=== PATIENT | female | born 1965 | race Caucasian/White ===

== ENCOUNTER 2017-07-26 13:57 | Emergency (ER) | payer OTHER ==
[~2017-07-26] VITALS: Ht 165.1 cm; Wt 122.0 kg
[~2017-07-26 13:57] MED LIST: ALBU4; ALBU90OI6 INH; CALCAVITD PO; CEPH500 PO; CHOL10002; CLIN300 PO; Cipro500 MG PO; FLUSAL1005 INH; FLUSAL2505 IH; Flomax0.4 MG PO; GABA300 PO; HYDACE25S PR; HYDACE5 PO; HYDCHL25 PO; HYOS.125 PO; KETO10 PO; LAMO100 PO; LORA10 PO; LOSHYD; Lisinopril2.5 MG PO; METF500 PO; MONT10T PO; NAPR250 PO; NAPR500 PO; Norco 10-325 T1 EACH PO; OXYACE5T PO; OXYB5 PO; OXYC5; PANT20; PRED20 PO; PROM25 PO; Percocet 5-3251 EACH PO; Peridex480 ML PO; Prinivil10 MG PO; SERT100 PO; SERT25; Ultram50 MG PO; VICODIN 5-3001 EACH PO; Zithromax250 MG PO; Zofran Odt8 MG SL
[2017-07-26] MEDS ORDERED: Norco 5-325 Ta1 EACH PO (14:42)
== END 2017-07-26 14:52 | disposition home or self-care (01) ==
LOC: ER 13:57
DX: S22.32XA Fracture of one rib, left side, initial encounter for closed fracture (principal); J45.909 Unspecified asthma, uncomplicated; E11.9 Type 2 diabetes mellitus without complications; F32.9 Major depressive disorder, single episode, unspecified; M81.0 Age-related osteoporosis without current pathological fracture; Z88.0 Allergy status to penicillin; Z88.2 Allergy status to sulfonamides; Z88.1 Allergy status to other antibiotic agents; Z88.8 Allergy status to other drugs, medicaments and biological substances; Z79.899 Other long term (current) drug therapy; Z87.891 Personal history of nicotine dependence; W50.0XXA Accidental hit or strike by another person, initial encounter
CPT/HCPCS: 99282

== ENCOUNTER 2018-04-01 11:06 | Emergency (ER) | payer OTHER ==
[~2018-04-01] VITALS: Ht 167.6 cm; Wt 122.5 kg
[~2018-04-01 11:06] MED LIST changes: +Norco 5-325 Ta1 EACH PO
== END 2018-04-01 13:06 | disposition home or self-care (01) ==
LOC: ER 11:06
DX: J20.9 Acute bronchitis, unspecified (principal); Z88.0 Allergy status to penicillin; Z88.2 Allergy status to sulfonamides; Z88.1 Allergy status to other antibiotic agents; Z88.8 Allergy status to other drugs, medicaments and biological substances; Z79.899 Other long term (current) drug therapy; J45.909 Unspecified asthma, uncomplicated; E11.9 Type 2 diabetes mellitus without complications; F32.9 Major depressive disorder, single episode, unspecified; Z87.891 Personal history of nicotine dependence
CPT/HCPCS: 71046; 94640; 99283-25

== ENCOUNTER 2018-04-10 11:35 | Emergency (ER) | payer OTHER ==
[~2018-04-10] VITALS: Ht 167.6 cm; Wt 122.5 kg
[2018-04-10] MEDS ORDERED: COMBIVENT RESPIM4 GM INH (12:46)
[2018-04-10] MEDS ORDERED: BUDE6HFA INH (12:46)
[2018-04-10] MEDS ORDERED: BENZ100A PO (12:46)
== END 2018-04-10 13:05 | disposition home or self-care (01) ==
LOC: ER 11:35
DX: J45.909 Unspecified asthma, uncomplicated (principal); E11.9 Type 2 diabetes mellitus without complications; F32.9 Major depressive disorder, single episode, unspecified; Z79.899 Other long term (current) drug therapy; Z88.0 Allergy status to penicillin; Z88.2 Allergy status to sulfonamides; Z87.891 Personal history of nicotine dependence
CPT/HCPCS: 71046; 94640; 99283-25

== ENCOUNTER 2018-09-23 11:48 | Emergency (ER) | payer OTHER ==
[~2018-09-23] VITALS: Ht 167.6 cm; Wt 124.7 kg
[~2018-09-23 11:48] MED LIST changes: +BENZ100A PO; +BUDE6HFA INH; +COMBIVENT RESPIM4 GM INH
[2018-09-23] MEDS ORDERED: Norco 5-325 Ta1 EACH PO (13:05)
== END 2018-09-23 13:11 | disposition home or self-care (01) ==
LOC: ER 11:48
DX: S22.32XA Fracture of one rib, left side, initial encounter for closed fracture (principal); X50.9XXA Other and unspecified overexertion or strenuous movements or postures, initial encounter; Z88.0 Allergy status to penicillin; Z88.2 Allergy status to sulfonamides; Z88.8 Allergy status to other drugs, medicaments and biological substances; Z88.1 Allergy status to other antibiotic agents; Z79.899 Other long term (current) drug therapy; J45.909 Unspecified asthma, uncomplicated; E11.9 Type 2 diabetes mellitus without complications; F32.9 Major depressive disorder, single episode, unspecified; Z87.891 Personal history of nicotine dependence
CPT/HCPCS: 71101; 99283-25

== ENCOUNTER 2018-10-14 11:10 | Emergency (ER) | payer OTHER ==
[~2018-10-14] VITALS: Ht 167.6 cm; Wt 122.5 kg
[2018-10-14] MEDS ORDERED: Norco 5-325 Ta1 EACH PO (12:57)
== END 2018-10-14 13:07 | disposition home or self-care (01) ==
LOC: ER 11:10
DX: R07.81 Pleurodynia (principal); Z88.0 Allergy status to penicillin; Z88.2 Allergy status to sulfonamides; Z88.1 Allergy status to other antibiotic agents; Z79.899 Other long term (current) drug therapy; J45.909 Unspecified asthma, uncomplicated; E11.9 Type 2 diabetes mellitus without complications; F32.9 Major depressive disorder, single episode, unspecified; Z87.891 Personal history of nicotine dependence
CPT/HCPCS: 99283

== ENCOUNTER → 2019-03-25 | Outpatient (CLI) | payer OTHER ==
[2019-03-25 12:25] LABS: BASOPHILS ABSOLUTE AUTO 0.08 K/mm3 (0.00-0.23); BASOPHILS PERCENT AUTO 1 % (0-2); EOSINOPHILS ABSOLUTE AUTO 0.52 K/mm3 (0.00-0.68); EOSINOPHILS PERCENT AUTO 5 % (0-6); Hematocrit 45.3 % (33.0-51.0); Hemoglobin 14.9 g/dL (11.5-16.0); IMMATURE GRAN ABSOLUTE AUTO 0.04 K/mm3 (0.00-0.10); IMMATURE GRAN PERCENT AUTO 0 % (0-1); LYMPHOCYTES ABSOLUTE AUTO 2.29 K/mm3 (0.84-5.20); LYMPHOCYTES PERCENT AUTO 22 % (21-46); MONOCYTES ABSOLUTE AUTO 0.89 K/mm3 (0.16-1.47); MONOCYTES PERCENT AUTO 9 % (4-13); Mean Corpuscular HGB 28.5 pg (26.0-34.0); Mean Corpuscular HGB Conc 32.9 g/dL (31.5-36.5); Mean Corpuscular Volume 87 fL (80-100); Mean Platelet Volume 9.9 fL (9.1-12.4); NEUTROPHILS ABSOLUTE AUTO 6.57 K/mm3 (1.96-9.15); NEUTROPHILS PERCENT AUTO 63 % (41-73); Platelet Count 324 K/mm3 (150-400); RDW Coefficient Variation 13.9 % (11.7-14.2); Red Blood Cell Count 5.22 M/mm3 (3.80-5.20); White Blood Cell Count 10.39 K/mm3 (4.00-11.30)
[2019-03-25 12:46] LABS: Alanine Aminotransfer (ALT/SGP 33 U/L (12-78); Albumin, Blood 3.8 g/dL (3.4-5.0); Albumin/Globulin Ratio 1.1 (0.8-1.8); Alk Phos 69 U/L (40-126); Anion Gap 9 mmol/L (6-16); Aspartate Aminotrans (AST/SGOT 26 U/L (12-37); Bilirubin, Total 0.4 mg/dL (0.1-1.0); Blood Urea Nitrogen 10 mg/dL (8-24); Bun/Creatinine Ratio 11.9 (12.0-20.0); CO2, Blood 28 mmol/L (21-32); Calcium, Blood 8.3 mg/dL (8.5-10.1); Chloride, Blood 107 mmol/L (98-108); Creatinine, Blood 0.84 mg/dL (0.40-1.00); Globulin, Blood 3.5 g/dL (2.2-4.0); Glomerular Filtration Rate >60 (60-); Glucose, Blood 89 mg/dL (70-99); Potassium, Blood 3.8 mmol/L (3.5-5.5); Sodium, Blood 144 mmol/L (136-145); Thyroid Stimulating Hormone 1.284 uIU/mL (0.360-4.800); Total Protein, Blood 7.3 g/dL (6.4-8.2)
== END | disposition home or self-care (01) ==
LOC: LAB EV 12:19 → LAB SHORT 12:19
PROVIDERS: Family Medicine
DX: I10 Essential (primary) hypertension (principal)
CPT/HCPCS: 80053; 84443; 85025

== ENCOUNTER 2021-04-14 10:13 | Emergency (ER) | payer OTHER ==
[~2021-04-14] VITALS: Ht 167.6 cm; Wt 122.5 kg
== END 2021-04-14 13:03 | disposition home or self-care (01) ==
LOC: ER 10:13
DX: R07.81 Pleurodynia (principal); E11.9 Type 2 diabetes mellitus without complications; J45.909 Unspecified asthma, uncomplicated; M81.0 Age-related osteoporosis without current pathological fracture; Z88.0 Allergy status to penicillin; Z88.2 Allergy status to sulfonamides; Z88.8 Allergy status to other drugs, medicaments and biological substances; Z88.1 Allergy status to other antibiotic agents; Z87.891 Personal history of nicotine dependence
CPT/HCPCS: 71100; 96372; 99283-25; J1885

== ENCOUNTER 2023-06-05 05:18 | Emergency (ER) | payer OTHER ==
[~2023-06-05] VITALS: Ht 172.7 cm; Wt 136.1 kg
[~2023-06-05 05:18] MED LIST changes: +Cyclobenzaprine5 MG
[2023-06-05] MEDS ORDERED: Acetaminophen 325 MG TABLET PO ONE (09:40)
[2023-06-05] MEDS ORDERED: Ketorolac Tromethamine 30mg Vial IM ONE (09:40)
[2023-06-05] MEDS ORDERED: Lidocaine 4% 1 Patch TOP ONE (09:40)
[2023-06-05 10:09] VITALS: BP 134/88
[2023-06-05] MEDS ORDERED: OxyCODONE HCL 5 MG TAB PO ONE (10:25)
[2023-06-05] MEDS ORDERED: OXAYDO5 M1 PO (11:20)
== END 2023-06-05 11:41 | disposition home or self-care (01) ==
LOC: ER 05:18
DX: M54.16 Radiculopathy, lumbar region (principal); Z98.890 Other specified postprocedural states; G89.29 Other chronic pain; M81.0 Age-related osteoporosis without current pathological fracture; E11.9 Type 2 diabetes mellitus without complications; Z87.891 Personal history of nicotine dependence; J45.909 Unspecified asthma, uncomplicated; Z79.899 Other long term (current) drug therapy; Z88.0 Allergy status to penicillin; Z88.1 Allergy status to other antibiotic agents; Z88.2 Allergy status to sulfonamides; Z88.8 Allergy status to other drugs, medicaments and biological substances
CPT/HCPCS: 72100; 73502; 96372; 99283-25; A9270; J1885

== ENCOUNTER 2024-04-20 20:27 | Emergency (ER) | payer OTHER ==
[~2024-04-20] VITALS: Ht 167.6 cm; Wt 117.9 kg
[~2024-04-20 20:27] MED LIST changes: +Ativan1 MG PO; -Cyclobenzaprine5 MG; +Cyclobenzaprine5 MG PO; +FLUT1DIS5 INH; +OXAYDO5 M1 PO
[2024-04-20] MEDS ORDERED: Lidocaine 4% 1 Patch TOP ONE (22:50)
[2024-04-20] MEDS ORDERED: RX Prepack 6 Tabs Oxycodone 5mg UD ONE (22:50)
[2024-04-20] MEDS ORDERED: OxyCODONE HCL 5 MG TAB PO ONE (22:50)
[2024-04-20 23:16] VITALS: BP 166/98
== END 2024-04-20 23:17 | disposition home or self-care (01) ==
LOC: ER 20:27
DX: R07.81 Pleurodynia (principal); J45.909 Unspecified asthma, uncomplicated; E11.9 Type 2 diabetes mellitus without complications; Z88.0 Allergy status to penicillin; Z88.2 Allergy status to sulfonamides; Z88.8 Allergy status to other drugs, medicaments and biological substances; Z79.899 Other long term (current) drug therapy; Z87.891 Personal history of nicotine dependence
CPT/HCPCS: 71100; 99283-25; A9270

== ENCOUNTER 2024-06-02 08:22 | Inpatient (IN) | payer OTHER ==
[~2024-06-02] VITALS: Ht 167.6 cm; Wt 108.8 kg
[2024-06-02] VITALS (18 sets, daily range): BP systolic 85–140; BP diastolic 39–96
[~2024-06-02 08:22] MED LIST changes: +CeFAZolin Sodium 2,000 MG in NS 100 ML IV SCH; +Chlorhexidine Mouth Care 15 ML UDC MT SCH; +Lactated Ringer's 1,000 ML IV SCH; +OxyCODONE HCL 10 MG TABCR PO SCH; +Tranexamic Acid 100 ML IV SCH
[2024-06-02] MEDS ORDERED: Ropivacaine 0.5% HCl/Pf 123.125 MG,EPINEPHrine HCL 0.25 MG,Ketorolac Tromethamine 15 MG... INFIL SCH (08:55)
[2024-06-02] MEDS ORDERED: Acetaminophen 500 MG Tab PO SCH ×2 (08:55→16:00)
[2024-06-02] MEDS ORDERED: Adipex-P37.5 M1 (09:10)
[2024-06-02] MEDS ORDERED: ASPI81CH PO (09:12)
[2024-06-02] MEDS ORDERED: CeFAZolin Sodium 2,000 MG VIAL ONE (09:26)
[2024-06-02] MEDS ORDERED: propofoL 20 ML IV ONE ×4 (09:36→11:47)
[2024-06-02] MEDS ORDERED: Midazolam HCl 1MG / ML 2ML Vial ONE ×2 (09:36→10:12)
[2024-06-02] MEDS ORDERED: FentaNYL Citrate 50 MCG/ML 2 ML Injection ONE ×2 (09:36→12:16)
--- NOTE | 2024-06-02 09:47 | NUR ---
PT INTO SDS VIA W/C. NOT ABLE TO BEAR MUCH WT ON RIGHT LEG Patient confirms NPO status and agrees with scheduled surgery. Pre-Op teaching done. Pt verbalizes understanding. History, Chart, Medications and Allergies reviewed before start of procedure. Patient reports completing Chlorhexadine shower X2 prior to admission to hospital.
--- NOTE | 2024-06-02 09:53 | NUR ---
PT'S GLASSES IN HER BELONGINGS BAG. PT STATES SHE IS OK W/ TAKING TYLENOL PO AND IM TORADOL DESPITE THESE BEING LISTED AT ADVERSE REACTIONS.
[2024-06-02] MEDS ORDERED: Bisacodyl 10 MG Supp PR PRN (10:25)
[2024-06-02] MEDS ORDERED: OxyCODONE HCL 5 MG TAB PO PRN ×2 (10:25)
[2024-06-02] MEDS ORDERED: Prochlorperazine Edisylate 10 mg Vial IV PRN (10:25)
[2024-06-02] MEDS ORDERED: Promethazine HCl 25 MG Tab PO PRN (10:25)
[2024-06-02] MEDS ORDERED: HYDROmorphone HCl/Pf 1MG SYR IV PRN (10:30)
[2024-06-02] MEDS ORDERED: Ondansetron HCl 2 MG / ML 2ML Vial IV PRN (10:30)
[2024-06-02] MEDS ORDERED: Magnesium Hydroxide Conc 10 ML UDC PO PRN (10:30)
[2024-06-02] MEDS ORDERED: Metoclopramide HCl 5MG / ML 2ML Vial IV PRN (10:30)
[2024-06-02] MEDS ORDERED: Lactated Ringer's 1,000 ML IV SCH (10:30)
[2024-06-02] MEDS ORDERED: DiphenhydrAMINE HCL 25 MG Cap PO PRN (10:30)
[2024-06-02] MEDS ORDERED: FLU VACC TS2024-25(6MOS UP)/PF 45 MCG/0.5 ML SYRINGE IM SCH (10:35)
--- NOTE | 2024-06-02 10:35 | NUR ---
06/02/24 1035 Suleiman,Vickie SPINAL BLOCK COMPLETED BY DR. LAW UPON ENTRY TO OR.
[2024-06-02] MEDS ORDERED: Mometasone/Formoterol MDI 200/5 mcg 13 GM INH SCH (11:00)
[2024-06-02] MEDS ORDERED: Phenylephrine HCl 100 MCG/ML-NS 10MLSYR (1MG/10ML) ONE (11:29)
[2024-06-02] MEDS ORDERED: Dexamethasone Sod Phos 10 MG/ML 1ML VIAL ONE (11:34)
[2024-06-02] MEDS ORDERED: ePHEDrine Sulfate 50 MG/ML 1ML Injection ONE (11:35)
--- NOTE | 2024-06-02 13:16 | NUR ---
TRANSFER TO UNIT AFTER RECEIVING REPORT FROM LOW PRESSURE KETTLE OPERATOR, PATIENT TRANSFERRED TO UNIT VIA BED AT APPROX 1300. PATIENT ALERT AND ORIENTED X4. LETHARGIC, EASILY AROUSABLE WITH VERBAL STIMULI. S/P R EZEQUIEL WITH SPINAL - REPORTS MINIMAL SENSATION, IS ABLE TO WIGGLE TOES SOME. PPP. CAP REFILL <3 SECONDS. ZAK DRESSING C/D/I. POLAR PACK IN PLACE. REPORTS NAUSEA, NO VOMITING - IV ZOFRAN ADMINISTERED PER EMAR. IVF INFUSING PER EMAR. SNACKS AND WATER WITHIN REACH. CALL LIGHT IN REACH. FRIEND AT BEDSIDE.
--- NOTE | 2024-06-02 17:44 | NUR ---
SHIFT SUMMARY NO ACUTE CHANGES SINCE ARRIVAL TO UNIT. S/P R EZEQUIEL. VSS. SBP 100s-110s. MAP >65. IVF INFUSING PER EMAR. TITRATED TO ROOM AIR, SATs >90%. AWAITING PHYSICAL THERAPY EVAL. UP WITH 1P ASSIST FWW GB TO BSC AND CHAIR. ZAK DRESSING C/D/I. PAIN MANAGED PER EMAR AND WITH POLAR PACK. NAUSEA IMPROVED - TOLERATING PO INTAKE. UNABLE TO VOID THIS EVENING - BLADDER SCAN PERFORMED PRIOR TO TRANSFER SHOWING 204ML. CALL LIGHT IN REACH.
[2024-06-02] MEDS ORDERED: CeFAZolin Sodium 2,000 MG in NS 100 ML IV SCH (18:00)
[2024-06-02] MEDS ORDERED: ELIQUIS2.5 MG PO (18:10)
[2024-06-02] MEDS ORDERED: Gabapentin 300 MG Cap PO SCH (21:00)
[2024-06-02] MEDS ORDERED: Montelukast Sodium 10 MG Tab PO SCH (21:00)
[2024-06-02] MEDS ORDERED: Docusate Sodium 100 MG Cap PO SCH (21:00)
[2024-06-03] VITALS (16 sets, daily range): BP systolic 101–137; BP diastolic 57–87
[2024-06-03] MEDS ORDERED: Cyclobenzaprine HCl 10 MG Tab PO PRN (00:10)
[2024-06-03 06:03] LABS: BASOPHILS ABSOLUTE AUTO 0.04 K/mm3 (0.00-0.23); BASOPHILS PERCENT AUTO 0 % (0-2); EOSINOPHILS ABSOLUTE AUTO 0.04 K/mm3 (0.00-0.68); EOSINOPHILS PERCENT AUTO 0 % (0-6); Hematocrit 33.3 % (33.0-51.0); Hemoglobin 11.1 g/dL (11.5-16.0); IMMATURE GRAN ABSOLUTE AUTO 0.11 K/mm3 (0.00-0.10); IMMATURE GRAN PERCENT AUTO 1 % (0-1); LYMPHOCYTES ABSOLUTE AUTO 2.03 K/mm3 (0.84-5.20); LYMPHOCYTES PERCENT AUTO 9 % (21-46); MONOCYTES ABSOLUTE AUTO 2.04 K/mm3 (0.16-1.47); MONOCYTES PERCENT AUTO 9 % (4-13); Mean Corpuscular HGB Conc 33.3 g/dL (31.5-36.5); Mean Corpuscular Volume 84 fL (80-100); NEUTROPHILS ABSOLUTE AUTO 18.56 K/mm3 (1.96-9.15); NEUTROPHILS PERCENT AUTO 81 % (41-73); Platelet Count 317 K/mm3 (150-400); RDW Coefficient Variation 13.8 % (11.7-14.2); RDW Standard Deviation 42.2 fL (35.1-46.3); Red Blood Cell Count 3.96 M/mm3 (3.80-5.20); White Blood Cell Count 22.82 K/mm3 (4.00-11.30)
[2024-06-03 06:13] LABS: Bun/Creatinine Ratio 39.5 (12.0-20.0); Calcium, Blood 8.5 mg/dL (8.5-10.1); Creatinine, Blood 0.63 mg/dL (0.40-1.00)
--- NOTE | 2024-06-03 07:17 | NUR ---
SHIFT SUMMARY PT POD 0 RIGHT TOTAL HIP. PT HAS BEEN PAINFUL POST OP. PT HAD SOME PAIN AT SHIFT CHANGE, BUT IT WAS MINIMAL. PT REPORTED IT AT 4/10. PT WAS ABLE TO AMBULATE IN THE HALLWAY WITH THE RADIAL DRILL PRESS OPERATOR AND REPORTED THAT SHE FELT GOOD. PT WAS ALSO TO AMBULATE FROM THE BSC BACK TO BED. CLOSER TO MIDNIGHT PT GOT UP WITH RADIAL DRILL PRESS OPERATOR TO USE THE BATHROOM AND PT REPORTS THAT SHE HEARD HER KNEE "POP". SHE VALENTINA THAT HER KNEE POPPED TWICE. SINCE THAT TIME PT HAS SUFFERED INTERMITTENT PAIN IN HER RIGHT KNEE AND INSIDE OF HER THIGH. PAIN ASSESSED FREQUENTLY AND MANAGE PER EMAR TO HELP ENSURE ADEQUATE PAIN RELIEF. PT REPORTS THAT PAIN MEDICATION EFFECTIVE FOR PAIN, HOWEVER PT REPORTS THAT THE PAIN KEEPS COMING BACK. PT ALSO REPORTS MUSCLE SPASMS IN HER LOWER EXT. PT REPORTS HISTORY OF ARTHRITIS IN HER RIGHT KNEE WELL MUSCLES SPASMS. SURGICAL SITE WNL, ARE IS SOFT. CIRCULATION WNL. PULSES ARE PRESENT. PT ABLE TO WIGGLE TOES. ATMOSPHERIC CHEMIST SUMEET VALENTIN ALSO ASSESSED SURGICAL SITE WITH THIS RN AND NOTED SAME FINDINGS. PT HAS ANXIOUS MOST OF THE NIGHT. REPORTING THAT THE PAIN WAKES HER FROM SLEEPING. PT NOW ONLY ABLE TO WALK SHORT DISTANCES FROM THE BED TO THE BSC, TOO MUCH MOVEMENT CAUSES SHARP PAINS IN HER RIGHT KNEE AND INNER THIGH. PT IS VOIDING, TOLERATING PO INTAKE. VITALS STABLE AND POST OP ANTIBIOTICS INFUSED. DAYSHIFT FRANKLYN DOBBS MADE AWARE OF PT REPORTED PAIN OVERNIGHT. DISCUSSED WITH PT DURING BEDSIDE REPORT THAT DAY RN WILL FOLLOW UP WITH PROVIDER. VITALS STABLE. BED IN LOWEST POISITON, CALL LIGHT WITHIN REACH.
[2024-06-03] MEDS ORDERED: Gabapentin 300 MG Cap PO SCH (09:00)
[2024-06-03] MEDS ORDERED: Sertraline HCl 100 MG Tab PO SCH (09:00)
[2024-06-03] MEDS ORDERED: LamoTRIgine 100 MG Tab PO SCH (09:00)
[2024-06-03] MEDS ORDERED: Apixaban 5 MG Tab PO SCH ×2 (09:00→21:00)
--- NOTE | 2024-06-03 14:00 | NUR ---
Pt. is awake in bed when she welcomes my visit. Pt. is pleasant but is unsettled by the delay in the response from her surgeon. Listen with empathy and a calming presence and seek to normalize the Pt. experience. Pt. continued to verbalize her frustration, so this director special education changed the focus and considered matters of marylou and belief. Pt. verbalized she is a member of the [employer] of the [facility]. Pt. displayed evidence of a growing level of trust. A friends came to visit, and the visit pretty much stopped. Pt. verbalized gratitude for the spiritual care visit.
--- NOTE | 2024-06-03 14:00 | NUR ---
DR. CHOE ROUNDED ON PT. DR. CHOE NOTIFIED OF URINARY RETENTION, BLADDER SCAN VOLUME OF 417ML. PER DR. CHOE OK FOR SANDERS CATHETER, HE SUGGESTED CATHETER PLACEMENT IN OR.
[2024-06-03] MEDS ORDERED: CeFAZolin Sodium 2,000 MG in NS 100 ML IV SCH (15:10)
[2024-06-03] MEDS ORDERED: Tranexamic Acid 100 ML IV SCH (15:10)
[2024-06-03] MEDS ORDERED: Chlorhexidine Mouth Care 15 ML UDC MT SCH (15:10)
[2024-06-03] MEDS ORDERED: Lactated Ringer's 1,000 ML IV SCH ×2 (15:10→19:05)
[2024-06-03] MEDS ORDERED: OxyCODONE HCL 10 MG TABCR PO SCH (15:10)
[2024-06-03] MEDS ORDERED: HYDROmorphone HCl/Pf 1MG SYR ONE ×3 (15:13→19:14)
[2024-06-03] MEDS ORDERED: CeFAZolin Sodium 2,000 MG VIAL ONE (15:18)
[2024-06-03] MEDS ORDERED: Lidocaine HCl 2% 20 ML MDV ONE (15:20)
[2024-06-03] MEDS ORDERED: Rocuronium Bromide 10 MG/ML 5ML Injection IV ONE ×3 (15:21→17:37)
[2024-06-03] MEDS ORDERED: propofoL 20 ML IV ONE ×3 (15:21→16:25)
[2024-06-03] MEDS ORDERED: FentaNYL Citrate 50 MCG/ML 2 ML Injection ONE ×3 (15:22→19:14)
[2024-06-03] MEDS ORDERED: Midazolam HCl 1MG / ML 2ML Vial ONE (15:25)
--- NOTE | 2024-06-03 15:30 | NUR ---
PT RECENTLY TO [facility] BY BED. Patient confirms NPO status and agrees with scheduled surgery. History, Chart, Medications and Allergies reviewed before start of procedure.Pre-Op teaching done. Pt verbalizes understanding. Lungs clear T/O to Auscultation. DISCUSSED MEDICATIONS TO BE GIVEN WITH ANESTHESIA.
--- NOTE | 2024-06-03 15:36 | NUR ---
SURGICAL NURSE Wolf. UPDATED ON MEDICATIONS GIVEN AND THAT TYLENOL WAS NOT GIVEN AT THIS TIME.
[2024-06-03] MEDS ORDERED: Dexamethasone Sod Phos 10 MG/ML 1ML VIAL ONE (17:31)
[2024-06-03] MEDS ORDERED: Ondansetron HCl 2 MG / ML 2ML Vial ONE (17:39)
[2024-06-03] MEDS ORDERED: FentaNYL Citrate 50 MCG/ML 2 ML Injection IV PRN (17:50)
[2024-06-03] MEDS ORDERED: Albuterol 2.5 MG/3 ML VIAL INH PRN (17:50)
[2024-06-03] MEDS ORDERED: HYDROmorphone HCl/Pf 1MG SYR IV PRN ×2 (17:50→19:10)
[2024-06-03] MEDS ORDERED: Ondansetron HCl 2 MG / ML 2ML Vial IV PRN ×2 (17:50→19:00)
--- NOTE | 2024-06-03 17:52 | NUR ---
SHIFT SUMMARY PT IS POD#1 FROM R EZEQUIEL. PT IN OR NOW FOR PERIPROSTHETIC FX. PAIN MANAGED WITH PO AND IV PAIN MEDICATION. PT CALL APPROPRIATELY.
[2024-06-03] MEDS ORDERED: Sugammadex Sodium 200 MG/2ML SDV (100 MG/ML) ONE (18:16)
[2024-06-03] MEDS ORDERED: Bisacodyl 10 MG Supp PR PRN (19:00)
[2024-06-03] MEDS ORDERED: Promethazine HCl 25 MG Tab PO PRN (19:05)
[2024-06-03] MEDS ORDERED: Magnesium Hydroxide Conc 10 ML UDC PO PRN (19:05)
[2024-06-03] MEDS ORDERED: OxyCODONE HCL 5 MG TAB PO PRN ×2 (19:05→19:10)
[2024-06-03] MEDS ORDERED: Metoclopramide HCl 5MG / ML 2ML Vial IV PRN (19:05)
[2024-06-03] MEDS ORDERED: Prochlorperazine Edisylate 10 mg Vial IV PRN (19:10)
[2024-06-03] MEDS ORDERED: DiphenhydrAMINE HCL 25 MG Cap PO PRN (19:10)
--- NOTE | 2024-06-03 20:23 | NUR ---
ARRIVAL FROM PACU TO UNIT PT ARRIVED FROM PACU AT 2007 TODAY VIA HOSPITAL BED TO SURGICAL UNIT. PT A/OX4, VERY DROWSY BUT ABLE TO MAKE NEEDS KNOWN. VSS. ON 3L NC AT 95%, CONT BIOX IN PLACE. ZAK TO LEFT HIP CDI, NO DRAINAGE NOTED. POLAR PACK WITH FRESH ICE APPLIED TO RIGHT HIP AREA. IV TO RIGHT HAND PATENT SL. SANDERS TO GRAVITY DRAIN, STAT LOCK TO LEFT THIGH. SCD'S AND COMPRESSION STOCKING BLE. BRISK CAP REFILL. ABLE TO WIGGLE TOES AND FINGERS. CHON SIPS OF WATER, DENIES N/V. PT RESTING WITH CALL LIGHT IN REACH, RESPIRATIONS EVEN AND UNLABORED WITH EYES CLOSED. POST VITALS ORDERED
[2024-06-03] MEDS ORDERED: Docusate Sodium 100 MG Cap PO SCH (21:00)
[2024-06-04] MEDS ORDERED: CeFAZolin Sodium 2,000 MG in NS 100 ML IV SCH
[2024-06-04 02:43] VITALS: BP 107/78
--- NOTE | 2024-06-04 04:03 | NUR ---
SHIFT SUMMARY POD 1 RIGHT TOTAL HIP REVISION. PT A/OX4 WITH VSS. SPO2 ABOVE 95%, CONT BIOX IN PLACE PER PROTOCOL. ZAK DRESSING INTACT AND COMPRESSED WITH SCANT AMOUNT OF SS DRAINAGE. DRESSING REINFORCED X 1 DUE TO AIR LEAK. PAIN MANAGED PER EMAR, CRYO, REPOSITIONING AND STANDING AT BEDSIDE. PT DENIES N/V, TOLERATING REG PO DIET. ABX AND IVF INFUSED PER ORDERS. ABLE TO DANGLE AND STAND AT BEDSIDE WITH 2 PERSON ERIBERTO, GB, FWW- PER PT REQUEST. WT BEARING OF TOE TOUCH ONLY MAINTAINED. PT CURRENTLY RESTING IN BED WITH EYES CLOSED AND RESP EVEN/UNLABORED, ROLL BETWEEN LEGS FOR SAFETY, AND CALL LIGHT IN REACH. PLAN TO WORK WITH THERAPY TODAY. WILL GIVE REPORT TO ONCOMING FRANKLYN
[2024-06-04 05:32] LABS: BASOPHILS ABSOLUTE AUTO 0.03 K/mm3 (0.00-0.23); BASOPHILS PERCENT AUTO 0 % (0-2); EOSINOPHILS PERCENT AUTO 0 % (0-6); Hematocrit 25.8 % (33.0-51.0); Hemoglobin 8.6 g/dL (11.5-16.0); IMMATURE GRAN ABSOLUTE AUTO 0.09 K/mm3 (0.00-0.10); IMMATURE GRAN PERCENT AUTO 1 % (0-1); LYMPHOCYTES ABSOLUTE AUTO 1.41 K/mm3 (0.84-5.20); LYMPHOCYTES PERCENT AUTO 8 % (21-46); MONOCYTES ABSOLUTE AUTO 1.99 K/mm3 (0.16-1.47); MONOCYTES PERCENT AUTO 11 % (4-13); Mean Corpuscular HGB 28.2 pg (26.0-34.0); Mean Corpuscular HGB Conc 33.3 g/dL (31.5-36.5); Mean Corpuscular Volume 85 fL (80-100); Mean Platelet Volume 10.2 fL (9.1-12.4); NEUTROPHILS ABSOLUTE AUTO 14.22 K/mm3 (1.96-9.15); NEUTROPHILS PERCENT AUTO 80 % (41-73); Platelet Count 311 K/mm3 (150-400); RDW Coefficient Variation 14.1 % (11.7-14.2); RDW Standard Deviation 43.2 fL (35.1-46.3); Red Blood Cell Count 3.05 M/mm3 (3.80-5.20); White Blood Cell Count 17.74 K/mm3 (4.00-11.30)
[2024-06-04 06:02] LABS: Calcium, Blood 8.3 mg/dL (8.5-10.1); Creatinine, Blood 0.72 mg/dL (0.40-1.00); Potassium, Blood 4.3 mmol/L (3.5-5.5)
[2024-06-04 07:54] VITALS: BP 135/76
[2024-06-04 08:37] VITALS: BP 135/82
--- NOTE | 2024-06-04 09:00 | NUR ---
DR. PALMER ROUNDED DISCUSSED INCREASED ANXIETY, ESPECIALLY OVERNIGHT. DR. PALMER SUGGESTED HAVING A THERAPY DOG VISIT TO HELP WITH PATIENT'S ANXIETY.
[2024-06-04 14:37] VITALS: BP 126/74
[2024-06-04 19:13] VITALS: BP 123/66
--- NOTE | 2024-06-04 19:32 | NUR ---
SHIFT SUMMARY PAIN HAS BEEN MANAGED WITH PO PAIN MEDICATION THIS SHIFT. PT IS A 1 ASSIST FOR TRANSFERS. PT IS PAINFUL WITH TRANSFERS, SHE MAINTAINS HER WEIGHT BEARING STATUS. ZAK DRESSING INTACT TO R THIGH, SWELLING PRESENT. BEDSIDE REPORT GIVEN TO ERICH ESTES.
[2024-06-05] VITALS (11 sets, daily range): BP systolic 102–142; BP diastolic 56–78
--- NOTE | 2024-06-05 05:54 | NUR ---
SHIFT SUMMARY POD 2 S/P RIGHT HIP ORIF REVISION. ZAK TO RIGHT HIP INCISION IN PLACE AND COMPRESSED, INCREASED SS DRAINAGED NOTED AT SUPERIOR PORTION OF DRESSING APPROX 4CM IN DIAMETER. PAIN MANAGED PER EMAR. IS VOIDING AND CHON PO INTAKE. 2 PERSON MAX ASSIST WITH GB AND SBA TO BSC, FREQUENT REMINDERS TO FOLLOW HIP PRECAUTIONS REQUIRED DURING TRANSFER. TOE TOUCH STATUS RLE. SCDS AND CRYO IN PLACE T/O SHIFT CHON. IV PATENT AND SL. PLAN TO WORK WITH THERAPY TODAY AND POSSIBLE SNF DISCHARGE. WILL GIVE REPORT TO ONCOMING FRANKLYN
[2024-06-05] MEDS ORDERED: Ketorolac Tromethamine 15mg Vial IV SCH (11:35)
[2024-06-05 12:12] LABS: BASOPHILS ABSOLUTE AUTO 0.06 K/mm3 (0.00-0.23); BASOPHILS PERCENT AUTO 0 % (0-2); EOSINOPHILS ABSOLUTE AUTO 0.08 K/mm3 (0.00-0.68); EOSINOPHILS PERCENT AUTO 1 % (0-6); Hematocrit 20.2 % (33.0-51.0); Hemoglobin 6.6 g/dL (11.5-16.0); IMMATURE GRAN PERCENT AUTO 1 % (0-1); LYMPHOCYTES ABSOLUTE AUTO 1.98 K/mm3 (0.84-5.20); LYMPHOCYTES PERCENT AUTO 13 % (21-46); MONOCYTES ABSOLUTE AUTO 1.58 K/mm3 (0.16-1.47); MONOCYTES PERCENT AUTO 11 % (4-13); Mean Corpuscular HGB 27.8 pg (26.0-34.0); Mean Corpuscular HGB Conc 32.7 g/dL (31.5-36.5); Mean Corpuscular Volume 85 fL (80-100); Mean Platelet Volume 10.1 fL (9.1-12.4); NEUTROPHILS ABSOLUTE AUTO 11.16 K/mm3 (1.96-9.15); NEUTROPHILS PERCENT AUTO 75 % (41-73); Platelet Count 279 K/mm3 (150-400); RDW Coefficient Variation 14.6 % (11.7-14.2); RDW Standard Deviation 44.8 fL (35.1-46.3); Red Blood Cell Count 2.37 M/mm3 (3.80-5.20); White Blood Cell Count 14.96 K/mm3 (4.00-11.30)
[2024-06-05 12:53] LABS: Bun/Creatinine Ratio 23.6 (12.0-20.0); Calcium, Blood 8.1 mg/dL (8.5-10.1); Creatinine, Blood 0.55 mg/dL (0.40-1.00)
[2024-06-05] MEDS ORDERED: NS 250 ML IV PRN (15:35)
[2024-06-05] MEDS ORDERED: Calcium/Vit D 600 mg-400 Unit Tab PO SCH (17:00)
--- NOTE | 2024-06-05 17:54 | NUR ---
1ST UNIT OF BLOOD TRANSFUSING AND AT ABOUT 1740, PT REPORTED SWELLING AT L WRIST IV SITE. THIS RN ASSESSED AND IV INFILTRATED. BLOOD STOPPED AND IV REMOVED. SITE WRAPPED WITH GAUZE AND COBAN, COMPRESSED AND ELEVATED ON A PILLOW. SLASHER HANDHECTOR STARTING NEW IV AT THIS TIME.
--- NOTE | 2024-06-05 19:11 | NUR ---
SUMMARY: NO ACUTE CHANGE TODAY. VSS, A/O. NO CHANGE TO SURGICAL SITE. PT REPORTS NO MUSCLE SPASMS TONIGHT AND PAIN WELL MANAGED. 1ST UNIT STILL INFUSING AT THIS TIME. PT USES CALL LIGHT AND MAKES NEEDS KNOWN. REPORT PASSED TO ERICH RN, ALIYAH
--- NOTE | 2024-06-05 20:42 | NUR ---
BLOOD UPDATE SECOND UNIT OF PRBC STARTED AT 2020.
--- NOTE | 2024-06-05 23:38 | NUR ---
BLOOD INFUSION COMPLETE 2ND UNIT OF BLOOD COMPLETE. PT A/OX4 WITH VSS. DENIES SOB. LUNG SOUNDS CL. PT RESTING IN BED WITH CPAP IN PLACE AND CALL LIGHT IN REACH.
[2024-06-06 05:03] VITALS: BP 115/66
[2024-06-06 06:06] LABS: BASOPHILS ABSOLUTE AUTO 0.06 K/mm3 (0.00-0.23); BASOPHILS PERCENT AUTO 0 % (0-2); EOSINOPHILS ABSOLUTE AUTO 0.42 K/mm3 (0.00-0.68); EOSINOPHILS PERCENT AUTO 3 % (0-6); Hematocrit 24.8 % (33.0-51.0); Hemoglobin 8.2 g/dL (11.5-16.0); IMMATURE GRAN ABSOLUTE AUTO 0.11 K/mm3 (0.00-0.10); IMMATURE GRAN PERCENT AUTO 1 % (0-1); LYMPHOCYTES PERCENT AUTO 18 % (21-46); MONOCYTES ABSOLUTE AUTO 1.08 K/mm3 (0.16-1.47); MONOCYTES PERCENT AUTO 8 % (4-13); Mean Corpuscular HGB 28.6 pg (26.0-34.0); Mean Corpuscular HGB Conc 33.1 g/dL (31.5-36.5); Mean Corpuscular Volume 86 fL (80-100); Mean Platelet Volume 10.1 fL (9.1-12.4); NEUTROPHILS ABSOLUTE AUTO 9.76 K/mm3 (1.96-9.15); NEUTROPHILS PERCENT AUTO 70 % (41-73); NRBC ABSOLUTE 0.02 K/mm3 (0.00-0.02); NRBC Auto 0.1 /100 WBC (0.0-0.2); Platelet Count 270 K/mm3 (150-400); RDW Coefficient Variation 14.4 % (11.7-14.2); RDW Standard Deviation 44.5 fL (35.1-46.3); Red Blood Cell Count 2.87 M/mm3 (3.80-5.20); White Blood Cell Count 13.93 K/mm3 (4.00-11.30)
--- NOTE | 2024-06-06 06:44 | NUR ---
SHIFT SUMMARY POD 3 ORIF REVISION OF RIGHT HIP. ZAK DRESSING TO INCISION IN PLACE AND COMPRESSED. SMALL AMOUNT OF INCREASED BLEEDING TO SUPERIOR AREA OF DRESSING NOTED. PT ABLE TO STAND, PIVOT TRANSFER X 1 ASSIST- IMPROVEMENT FROM START OF SHIFT. RECEIVED 2 UNIT PRB. PT REPORTS TO FEELING BETTER THIS MORNING AND SLEPT WELL DURING THE NIGHT. WEARING CPAP WHILE SLEEPING RELATED MO. PAIN MANAGED PER EMAR. CHON PO INTAKE, DENIES N/V. REPORTS PASSING FLATUS. IS VOIDING. IV PATENT AND SL. PLAN FOR POSSIBLE D/C TO SNF. AWAITING LABS. WILL GIVE REPORT TO ONCOMING RN.
[2024-06-06 06:48] LABS: Albumin, Blood 2.5 g/dL (3.4-5.0); Albumin/Globulin Ratio 0.7 (0.8-1.8); Bilirubin, Total 0.6 mg/dL (0.1-1.0); Bun/Creatinine Ratio 25.4 (12.0-20.0); Calcium, Blood 8.4 mg/dL (8.5-10.1); Creatinine, Blood 0.71 mg/dL (0.40-1.00); Globulin, Blood 3.5 g/dL (2.2-4.0); Potassium, Blood 3.5 mmol/L (3.5-5.5)
[2024-06-06 07:35] VITALS: BP 130/68
[2024-06-06 09:35] LABS: Percent Saturation 12.6 % (15.0-50.0)
--- NOTE | 2024-06-06 10:33 | NUR ---
MORNING NOTE THIS RN ASSUMED CARE AT APPROX 0715. PATIENT ALERT AND ORIENTED X4. COMMUNICATES NEEDS EFFECTIVELY. VSS. SBP 130s. MAP >65. DENIES CHEST PAIN, PRESSURE. ON ROOM AIR, SATs >90%. DENIES SOB. HX OF MO WITH CPAP USE - DEVICE AT BEDSIDE. POD 3 R ORIF AND EZEQUIEL - MODERATE SANGUINOUS DRAINAGE TO ZAK DRESSING. DRESSING CHANGED THIS MORNING - C/D/I. AMBULATING WITH 1P ASSIST FWW GB. TTWB RLE. BEDBATH PERFORMED. UP IN RECLINER CHAIR. MANAGING PAIN PER EMAR AND WITH POLAR PACK. CALL LIGHT IN REACH.
--- NOTE | 2024-06-06 13:35 | NUR ---
DISCHARGE NOTE NO ACUTE CHANGES SINCE MORNING NOTE. DC TO [facility] ORDERED BY . CASE MANAGEMENT ARRANGED DC AND FOR TRANSPORT TO FACILITY. POD 3 R ORIF AND HIP REVISION - ZAK DRESSING REMAINS C/D/I. MANAGING PAIN WITH PRESCRIBED THERAPY AND POLAR PACK. AMBULATING WITH 1P ASSIST FWW GB - UP IN CHAIR. IV REMOVED. REPORT GIVEN TO OSCAR ESTES AT [facility] FOR ASSUMPTION OF CARE FOLLOWING TRANSFER. PERSONAL BELONGINGS WITH PATIENT.
== END 2024-06-06 13:40 | DRG 466 ==
LOC: SURS 08:22 → ORSCMMR 08:22 → SURS 13:00 → ORSCMMR 06-03 09:03 → SURS 06-06 13:40
PROVIDERS: Internal Medicine; Orthopaedic Surgery Sports Medicine; ADMIT Orthopaedic Surgery
PROC: 0SR90JZ Replacement of Right Hip Joint with Synthetic Substitute, Open Approach (ICD-10-PCS; 2024-06-02)
PROC: 0QS604Z Reposition Right Upper Femur with Internal Fixation Device, Open Approach (ICD-10-PCS; 2024-06-02)
PROC: 0HBHXZZ Excision of Right Upper Leg Skin, External Approach (ICD-10-PCS; 2024-06-02)
PROC: 30233N1 Transfusion of Nonautologous Red Blood Cells into Peripheral Vein, Percutaneous Approach (ICD-10-PCS; 2024-06-03)
PROC: 0SW90JZ Revision of Synthetic Substitute in Right Hip Joint, Open Approach (ICD-10-PCS; principal; 2024-06-03 15:30)
DX: M16.11 Unilateral primary osteoarthritis, right hip (principal); S72.111A Displaced fracture of greater trochanter of right femur, initial encounter for closed fracture; J45.909 Unspecified asthma, uncomplicated; E11.9 Type 2 diabetes mellitus without complications; F32.A Depression, unspecified; M54.50 Low back pain, unspecified; G89.29 Other chronic pain; D50.9 Iron deficiency anemia, unspecified; E55.9 Vitamin D deficiency, unspecified; M81.0 Age-related osteoporosis without current pathological fracture; Z88.2 Allergy status to sulfonamides; Z96.641 Presence of right artificial hip joint; Z88.8 Allergy status to other drugs, medicaments and biological substances; Z88.0 Allergy status to penicillin; Z79.891 Long term (current) use of opiate analgesic; Z88.1 Allergy status to other antibiotic agents; Z79.01 Long term (current) use of anticoagulants; Z79.899 Other long term (current) drug therapy; Z98.890 Other specified postprocedural states; X58.XXXA Exposure to other specified factors, initial encounter
CPT/HCPCS: 36415; 36430; 72170; 73502; 80048; 80053; 82306; 82728; 83540; 83550; 85025; 86850; 86900; 86901; 86923; 94640; 94660; 94664; 94760; 94762; 97110; 97162; 97165; 97530; A6010; A9270; C1713; C1776; J0171; J0690; J0735; J1100; J1171; J1885; J2250; J2371; J2405; J2704; J2795; J3010; J7050; J7120; P9016

== ENCOUNTER 2024-07-05 04:46 | Emergency (ER) | payer OTHER ==
[~2024-07-05] VITALS: Ht 167.6 cm; Wt 117.9 kg
[~2024-07-05 04:46] MED LIST changes: +ASPI81CH PO; +Adipex-P37.5 M1; -CeFAZolin Sodium 2,000 MG in NS 100 ML IV SCH; -Chlorhexidine Mouth Care 15 ML UDC MT SCH; +ELIQUIS2.5 MG PO; -Lactated Ringer's 1,000 ML IV SCH; -OxyCODONE HCL 10 MG TABCR PO SCH; -Tranexamic Acid 100 ML IV SCH
[2024-07-05] MEDS ORDERED: Ketorolac Tromethamine 15mg Vial IM ONE (07:35)
[2024-07-05 09:15] VITALS: BP 118/59
== END 2024-07-05 09:28 | disposition home or self-care (01) ==
LOC: ER 04:46
DX: M25.551 Pain in right hip (principal); E11.9 Type 2 diabetes mellitus without complications; J45.909 Unspecified asthma, uncomplicated; M81.0 Age-related osteoporosis without current pathological fracture; Z96.641 Presence of right artificial hip joint; Z87.891 Personal history of nicotine dependence; Z88.0 Allergy status to penicillin; Z88.1 Allergy status to other antibiotic agents; Z88.2 Allergy status to sulfonamides; Z88.6 Allergy status to analgesic agent; Z88.8 Allergy status to other drugs, medicaments and biological substances; Z79.82 Long term (current) use of aspirin; Z79.01 Long term (current) use of anticoagulants; Z79.899 Other long term (current) drug therapy; W05.0XXA Fall from non-moving wheelchair, initial encounter
CPT/HCPCS: 73502; 96372; 99283-25; J1885

== ENCOUNTER 2024-09-14 01:38 | Observation (INO) | payer OTHER ==
[~2024-09-14] VITALS: Ht 170.2 cm; Wt 103.0 kg
[2024-09-14] VITALS (14 sets, daily range): BP systolic 123–155; BP diastolic 67–94
[~2024-09-14 01:38] MED LIST changes: -Adipex-P37.5 M1; +Adipex-P37.5 M1 PO
[2024-09-14] MEDS ORDERED: HYDROmorphone HCl/Pf 1MG SYR IV ONE ×2 (02:25→12:20)
[2024-09-14] MEDS ORDERED: Morphine Sulfate 4 MG/1 ML Injection IV ONE (03:20)
[2024-09-14] MEDS ORDERED: Naloxone HCl 0.4MG / ML 1ML Vial IV PRN (05:10)
[2024-09-14] MEDS ORDERED: Ondansetron HCl 2 MG / ML 2ML Vial IV PRN (05:10)
[2024-09-14] MEDS ORDERED: HYDROmorphone HCl/Pf 1MG SYR IV PRN ×3 (05:10→06:45)
[2024-09-14 05:30] LABS: BASOPHILS ABSOLUTE AUTO 0.06 K/mm3 (0.00-0.23); BASOPHILS PERCENT AUTO 1 % (0-2); EOSINOPHILS ABSOLUTE AUTO 0.43 K/mm3 (0.00-0.68); EOSINOPHILS PERCENT AUTO 4 % (0-6); Hematocrit 36.1 % (33.0-51.0); IMMATURE GRAN ABSOLUTE AUTO 0.02 K/mm3 (0.00-0.10); IMMATURE GRAN PERCENT AUTO 0 % (0-1); LYMPHOCYTES ABSOLUTE AUTO 1.67 K/mm3 (0.84-5.20); LYMPHOCYTES PERCENT AUTO 16 % (21-46); MONOCYTES ABSOLUTE AUTO 0.76 K/mm3 (0.16-1.47); MONOCYTES PERCENT AUTO 7 % (4-13); Mean Corpuscular HGB 22.7 pg (26.0-34.0); Mean Corpuscular HGB Conc 30.5 g/dL (31.5-36.5); Mean Corpuscular Volume 75 fL (80-100); Mean Platelet Volume 9.3 fL (9.1-12.4); NEUTROPHILS ABSOLUTE AUTO 7.55 K/mm3 (1.96-9.15); NEUTROPHILS PERCENT AUTO 72 % (41-73); Platelet Count 438 K/mm3 (150-400); RDW Coefficient Variation 17.9 % (11.7-14.2); RDW Standard Deviation 47.4 fL (35.1-46.3); Red Blood Cell Count 4.84 M/mm3 (3.80-5.20); White Blood Cell Count 10.49 K/mm3 (4.00-11.30)
[2024-09-14 05:44] LABS: International Normalized Ratio 0.99; Prothrombin Time Results 10.9 Sec (9.7-11.5)
[2024-09-14 05:58] LABS: Percent Saturation 5.1 % (15.0-50.0)
[2024-09-14] MEDS ORDERED: Lactated Ringer's 1,000 ML IV SCH (06:00)
[2024-09-14 06:17] LABS: Albumin, Blood 3.4 g/dL (3.4-5.0); Albumin/Globulin Ratio 0.9 (0.8-1.8); Bilirubin, Total 0.4 mg/dL (0.1-1.0); Bun/Creatinine Ratio 19.2 (12.0-20.0); Calcium, Blood 8.6 mg/dL (8.5-10.1); Creatinine, Blood 0.57 mg/dL (0.40-1.00); Globulin, Blood 3.8 g/dL (2.2-4.0); Potassium, Blood 3.4 mmol/L (3.5-5.5); Total Protein, Blood 7.2 g/dL (6.4-8.2)
--- NOTE | 2024-09-14 06:35 | NUR ---
ARRIVAL NOTE PT ARRIVED FROM ED AT 0630 TODAY VIA GURNEY. PT A/OX4 WITH VSS. PAIN 10/10 AND CRYING OUT. HOSPITALIST NOTIFIED, NEW ORDER OBTAINED- SEE EMAR. IV SL. PT DENIES N/V, SOB, CHEST PAIN OR PRESSURE. IS NPO. SPO2 ABOVE 94% ON RA. PUREWICK REPLACED. CHANGED INTO ATTENDS. REFUSING GOWN. ORIENTATION TO ROOM PROVIDED. AWAITING PHARM TO VERIFY MEDICATION ORDER FOR PAIN. WILL GIVE REPORT TO ONCOMING RN.
--- NOTE | 2024-09-14 07:10 | NUR ---
UPDATE PT APPEARS TO BE SLEEPING COMFORTABLY IN BED, EYES CLOSED AND RESPIRATIONS EVEN/UNLABORED. HAS CALL LIGHT IN REACH. WILL HOLD IV DILAUDID FOR PAIN MANAGEMENT AT THIS TIME. DAY RN NOTIFIED.
[2024-09-14] MEDS ORDERED: Potassium Chl 20MEQ/Water100ML 100 ML IV STA (08:16)
[2024-09-14] MEDS ORDERED: Docusate Sodium 100 MG Cap PO SCH (09:00)
[2024-09-14] MEDS ORDERED: propofoL 20 ML IV ONE (12:22)
[2024-09-14] MEDS ORDERED: OxyCODONE HCL 5 MG TAB PO PRN (12:25)
--- NOTE | 2024-09-14 12:35 | NUR ---
TO DAY SURGERY VIA HOSPITAL BED
[2024-09-14] MEDS ORDERED: FentaNYL Citrate 50 MCG/ML 2 ML Injection ONE (12:38)
[2024-09-14] MEDS ORDERED: Mometasone/Formoterol MDI 200/5 mcg 13 GM INH SCH (12:40)
--- NOTE | 2024-09-14 12:40 | NUR ---
PT TRANSPORTED TO [facility] VIA BED. TEARFUL AT TIMES. STATES PAIN LEVEL 9/[address] CHING INTO SEE PATIENT TO DISCUSS SURGERY WITH PATIENT. Patient confirms NPO status and agrees with scheduled surgery.
[2024-09-14] MEDS ORDERED: propofoL 50 ML IV ONE (12:47)
--- NOTE | 2024-09-14 12:53 | NUR ---
PER DR. CHING NO PAS OR CHELLY EVANS NEEDED. PER DR. ACEVEDO NO REPEAT CBG NEEDED. PROCEDURE TO BE DONE IN PROCEDURE ROOM 2.
--- NOTE | 2024-09-14 13:38 | NUR ---
PT CONTINUES TO OBSTRUCT AND DE SAT INTO UPPER 80%'S. PT REPORTS SHE HAS MO AND WEARS A C-PAP AT HOME BUT DOES NOT HAVE ONE W/HER. REPORT CALLED TO MAIA KAUR RN AND CPAP MACHINE ORDERED. 02 AT 2L/MIN STARTED IN THE MEAN TIME.
--- NOTE | 2024-09-14 14:00 | NUR ---
RETURN TO SURGICAL UNIT VIA HOAPITAL BED. PPP. R LEG w/ KNEE IMMOBILIZER. WIGGLES TOES. VERY DROWSY. OPENS EYES TO NAME THEN FALLS BACK TO SLEEP QUICKLY. 3L NC.
--- NOTE | 2024-09-14 18:29 | NUR ---
SHIFT SUMMARY PT HAD PROCEDURE TODAY. HAS SINCE BEEN UP TWICE TO BSC. STILL PAINFUL BUT BETTER. PASSING GAS, VOIDING, NO BM.
[2024-09-14] MEDS ORDERED: SuccINYLCHOLINE Chloride 100 MG/5 ML 5MLSYR IV ONE (18:57)
[2024-09-14] MEDS ORDERED: Polyethylene Glycol 3350 17 gm PO SCH (21:00)
[2024-09-14] MEDS ORDERED: Montelukast Sodium 10 MG Tab PO SCH (21:00)
[2024-09-14] MEDS ORDERED: Gabapentin 300 MG Cap PO SCH (21:00)
[2024-09-15 00:28] VITALS: BP 137/86
[2024-09-15 05:18] LABS: BASOPHILS ABSOLUTE AUTO 0.06 K/mm3 (0.00-0.23); BASOPHILS PERCENT AUTO 1 % (0-2); EOSINOPHILS ABSOLUTE AUTO 0.28 K/mm3 (0.00-0.68); EOSINOPHILS PERCENT AUTO 3 % (0-6); Hematocrit 36.2 % (33.0-51.0); IMMATURE GRAN ABSOLUTE AUTO 0.03 K/mm3 (0.00-0.10); IMMATURE GRAN PERCENT AUTO 0 % (0-1); LYMPHOCYTES ABSOLUTE AUTO 1.79 K/mm3 (0.84-5.20); LYMPHOCYTES PERCENT AUTO 19 % (21-46); MONOCYTES ABSOLUTE AUTO 0.89 K/mm3 (0.16-1.47); MONOCYTES PERCENT AUTO 10 % (4-13); Mean Corpuscular HGB 22.2 pg (26.0-34.0); Mean Corpuscular HGB Conc 30.4 g/dL (31.5-36.5); Mean Corpuscular Volume 73 fL (80-100); Mean Platelet Volume 9.2 fL (9.1-12.4); NEUTROPHILS ABSOLUTE AUTO 6.23 K/mm3 (1.96-9.15); NEUTROPHILS PERCENT AUTO 67 % (41-73); Platelet Count 448 K/mm3 (150-400); RDW Coefficient Variation 18.2 % (11.7-14.2); RDW Standard Deviation 47.1 fL (35.1-46.3); Red Blood Cell Count 4.95 M/mm3 (3.80-5.20); White Blood Cell Count 9.28 K/mm3 (4.00-11.30)
[2024-09-15 05:22] VITALS: BP 137/73
--- NOTE | 2024-09-15 05:38 | NUR ---
SHIFT SUMMARY S/P R HIP DISLOCATION. STRICT POSTERIOR HIP PRECAUTIONS. KNEE IMMOBILIZER IN PLACE. A&0 x4. VSS, CPAP c CONT BIOX. TOLERATING ORALS. 1 PERSON ASSIST c FWW & GB, STAND/PIVOT TO CHAIR/BSC. VOIDING. PT REPORTS PAIN TOLERABLE. MEDICATED PER EMAR. PT SLEPT IN CHAIR OVERNIGHT. PT REQUIRES EDUCATION c ALL CARE INTERACTIONS R/T AMB & PECAUTIONS. CALL LIGHT IN REACH, WILL REPORT TO DAY RN
[2024-09-15 05:44] LABS: Albumin, Blood 3.1 g/dL (3.4-5.0); Albumin/Globulin Ratio 0.8 (0.8-1.8); Bilirubin, Total 0.5 mg/dL (0.1-1.0); Bun/Creatinine Ratio 10.2 (12.0-20.0); Calcium, Blood 8.4 mg/dL (8.5-10.1); Creatinine, Blood 0.59 mg/dL (0.40-1.00); Globulin, Blood 3.9 g/dL (2.2-4.0); Potassium, Blood 3.1 mmol/L (3.5-5.5)
[2024-09-15 07:18] VITALS: BP 127/83
--- NOTE | 2024-09-15 08:14 | NUR ---
DR WADDELL IN TO SEE PT.
[2024-09-15] MEDS ORDERED: Ferrous Sulfate 325 MG Tab PO SCH (08:30)
[2024-09-15] MEDS ORDERED: LamoTRIgine 100 MG Tab PO SCH (09:00)
[2024-09-15] MEDS ORDERED: Potassium Chloride 20 MEQ TabCR PO ONE (09:00)
[2024-09-15] MEDS ORDERED: Gabapentin 300 MG Cap PO SCH (09:00)
[2024-09-15] MEDS ORDERED: Sertraline HCl 100 MG Tab PO SCH (09:00)
[2024-09-15] MEDS ORDERED: Aspirin 81 MG Chew PO SCH (09:00)
--- NOTE | 2024-09-15 10:20 | NUR ---
jere/phys therapy in to see pt.
[2024-09-15] MEDS ORDERED: OXYC5 PO (13:57)
[2024-09-15] MEDS ORDERED: Acerola C500 MG PO (13:58)
[2024-09-15] MEDS ORDERED: CALCIUM 600 +1 EA11 PO (13:59)
[2024-09-15] MEDS ORDERED: DOCU100 PO (13:59)
[2024-09-15] MEDS ORDERED: FEROSUL325 M1 PO (14:00)
[2024-09-15] MEDS ORDERED: MIRALAX17 GM PO (14:01)
[2024-09-15 14:17] VITALS: BP 116/74
--- NOTE | 2024-09-15 14:26 | NUR ---
DISCHARGING PT CLEARED THERAPY. REVIEWED DC INSTRUCTIONS W/PT; VERBALIZED UNDERSTANDING. CAREGIVER BEDSIDE. PT REFUSED PRESCRIPTIONS FOR COLACE AND MIRALAX. VSS. SIGNED DC PAPERWORK.
--- NOTE | 2024-09-15 14:43 | NUR ---
discharged PT LEFT UNIT IN WC, ACCOMPANIED BY CAREGIVER WHO HAD POSSESSIONS AND DC PAPERWORK IN HAND.
[2024-09-15] MEDS ORDERED: Ascorbic Acid 500 MG Tab PO SCH (17:00)
[2024-09-15] MEDS ORDERED: Calcium/Vit D 600 mg-400 Unit Tab PO SCH (17:00)
== END 2024-09-15 14:30 | disposition home or self-care (01) ==
LOC: ER 01:38 → SURS 01:39 → ERHOLD 01:39 → SURS 06:20
PROVIDERS: Orthopaedic Surgery; Student in an Organized Health Care Education/Training Program; ADMIT Student in an Organized Health Care Education/Training Program
PROC: 0SW9XJZ Revision of Synthetic Substitute in Right Hip Joint, External Approach (ICD-10-PCS; principal; 2024-09-14 12:30)
DX: T84.020A Dislocation of internal right hip prosthesis, initial encounter (principal); Y79.2 Prosthetic and other implants, materials and accessory orthopedic devices associated with adverse incidents; E87.6 Hypokalemia; M54.50 Low back pain, unspecified; G89.29 Other chronic pain; F43.12 Post-traumatic stress disorder, chronic; J45.909 Unspecified asthma, uncomplicated; E66.9 Obesity, unspecified; G47.33 Obstructive sleep apnea (adult) (pediatric); D50.9 Iron deficiency anemia, unspecified; E55.9 Vitamin D deficiency, unspecified; E11.9 Type 2 diabetes mellitus without complications; Z87.891 Personal history of nicotine dependence; Z88.1 Allergy status to other antibiotic agents; Z88.0 Allergy status to penicillin; Z88.2 Allergy status to sulfonamides; Z88.6 Allergy status to analgesic agent; Z79.82 Long term (current) use of aspirin; Z79.899 Other long term (current) drug therapy
CPT/HCPCS: 36415; 73502; 73700; 80053; 82728; 83540; 83550; 83735; 85025; 85610; 85651; 86140; 94640; 94660; 94664; 94760; 94762; 96365; 96366; 96374; 96375; 96376; 97110; 97116; 97162; 97167; 97530; 97535; 99285-25; A9270; G0378; J0330; J1171; J2270; J2704; J3010; J3480; J7120

== ENCOUNTER 2024-10-12 04:39 | Inpatient (IN) | payer OTHER ==
[2024-10-12] VITALS (12 sets, daily range): BP systolic 114–146; BP diastolic 68–89
[~2024-10-12] VITALS: Ht 167.6 cm; Wt 99.8 kg
[~2024-10-12 04:39] MED LIST changes: +Acerola C500 MG PO; +CALCIUM 600 +1 EA11 PO; +DOCU100 PO; +FEROSUL325 M1 PO; +MIRALAX17 GM PO; +OXYC5 PO
[2024-10-12] MEDS ORDERED: FentaNYL Citrate 50 MCG/ML 2 ML Injection IV ONE (05:00)
[2024-10-12] MEDS ORDERED: NS 500 ML IV SCH (05:30)
[2024-10-12] MEDS ORDERED: Propofol 10mg/ml 20 ml Vial (Procedural) IV SCH ×2 (05:30→06:40)
[2024-10-12] MEDS ORDERED: HYDROmorphone HCl/Pf 1MG SYR IV ONE (07:25)
[2024-10-12 07:38] LABS: BASOPHILS ABSOLUTE AUTO 0.06 K/mm3 (0.00-0.23); BASOPHILS PERCENT AUTO 1 % (0-2); EOSINOPHILS ABSOLUTE AUTO 0.44 K/mm3 (0.00-0.68); EOSINOPHILS PERCENT AUTO 4 % (0-6); Hematocrit 37.0 % (33.0-51.0); Hemoglobin 11.2 g/dL (11.5-16.0); IMMATURE GRAN ABSOLUTE AUTO 0.05 K/mm3 (0.00-0.10); IMMATURE GRAN PERCENT AUTO 0 % (0-1); LYMPHOCYTES ABSOLUTE AUTO 1.39 K/mm3 (0.84-5.20); LYMPHOCYTES PERCENT AUTO 12 % (21-46); MONOCYTES ABSOLUTE AUTO 0.83 K/mm3 (0.16-1.47); MONOCYTES PERCENT AUTO 7 % (4-13); Mean Corpuscular HGB Conc 30.3 g/dL (31.5-36.5); Mean Corpuscular Volume 75 fL (80-100); NEUTROPHILS ABSOLUTE AUTO 9.31 K/mm3 (1.96-9.15); NEUTROPHILS PERCENT AUTO 77 % (41-73); NRBC ABSOLUTE 0.00 K/mm3 (0.00-0.02); NRBC Auto 0.0 /100 WBC (0.0-0.2); Platelet Count 286 K/mm3 (150-400); RDW Coefficient Variation 21.6 % (11.7-14.2); RDW Standard Deviation 56.8 fL (35.1-46.3)
[2024-10-12 08:00] LABS: Alanine Aminotransfer (ALT/SGP 26.0 U/L (12-78); Albumin, Blood 3.5 g/dL (3.4-5.0); Albumin/Globulin Ratio 1.0 (0.8-1.8); Anion Gap 7.0 mmol/L (3-11); Aspartate Aminotrans (AST/SGOT 24.0 U/L (12-37); Bilirubin, Total 0.3 mg/dL (0.1-1.0); Blood Urea Nitrogen 19.0 mg/dL (8-24); CO2, Blood 27.0 mmol/L (21-32); Calcium, Blood 8.7 mg/dL (8.5-10.1); Chloride, Blood 109.0 mmol/L (98-108); Creatinine, Blood 0.7 mg/dL (0.40-1.00); Globulin, Blood 3.6 g/dL (2.2-4.0); Glucose, Blood 98.0 mg/dL (70-99); Potassium, Blood 3.7 mmol/L (3.5-5.5); Sodium, Blood 139.0 mmol/L (136-145); Total Protein, Blood 7.1 g/dL (6.4-8.2)
[2024-10-12] MEDS ORDERED: HYDROmorphone HCl/Pf 1MG SYR IV PRN ×3 (08:20→12:05)
--- NOTE | 2024-10-12 09:20 | NUR ---
PT HAS 20G IV TO LEFT FOREARM THAT FLUSHES WELL AND FLOWS TO GRAVITY.
--- NOTE | 2024-10-12 09:55 | NUR ---
Pre-Op teaching done. Pt verbalizes understanding. History, Chart, Medications and Allergies reviewed before start of procedure. Patient confirms NPO status and agrees with scheduled surgery. PT REMOVED NECKLACE AND PLACED IN PURSE. PURSE PLACED IN BELONGINGS BAG UNDER GURNEY.
[2024-10-12] MEDS ORDERED: FentaNYL Citrate 50 MCG/ML 2 ML Injection ONE (11:58)
[2024-10-12] MEDS ORDERED: FentaNYL Citrate 50 MCG/ML 2 ML Injection IV PRN ×2 (12:05)
[2024-10-12] MEDS ORDERED: HYDROmorphone HCl/Pf 1MG SYR ONE (12:05)
[2024-10-12] MEDS ORDERED: Ondansetron HCl 2 MG / ML 2ML Vial IV PRN (12:10)
[2024-10-12] MEDS ORDERED: Labetalol HCL 5 MG/ML 4ML Injection (Single Dose) IV PRN (12:10)
[2024-10-12] MEDS ORDERED: Formoterol/Mometasone MDI 5/200 mcg 13 GM INH SCH (16:15)
[2024-10-12] MEDS ORDERED: Albuterol 2.5 MG/3 ML VIAL INH PRN (16:15)
--- NOTE | 2024-10-12 18:55 | NUR ---
ADMISSION/SHIFT SUMMARY: PT IS A NEW ADMIT, ARRIVING FROM OR AT APPROX 1245. PT HAS BEEN DROWSY, EASILY ALERT TO STAFF IN ROOM, ANSWERS QUESTIONS APPROPRIATELY. PT IS S/P R HIP REDUCTION, ACTIVITY PARAMETERS ARE IN PLACE, 1P ASSIST W/ FWW. PT DENIES SOB, RA SATS >92% ON RA, CPAP AT BEDSIDE FOR SLEEP. PT DENIES CP, SR ON MONITOR, RATE 70s-80s. ABDOMINAL HERNIA, BT HYPOACTIVE TO AUSC. PT MEDICATED PER EMAR FOR C/O PAIN. REPORT GIVEN TO FRANKLYN FLORES TO ASSUME CARE OF PT.
[2024-10-13 00:30] VITALS: BP 141/86
[2024-10-13 04:18] VITALS: BP 132/86
[2024-10-13 05:04] LABS: Hematocrit 38.5 % (33.0-51.0); Hemoglobin 11.6 g/dL (11.5-16.0); Mean Corpuscular HGB Conc 30.1 g/dL (31.5-36.5); Mean Corpuscular Volume 75 fL (80-100); NRBC ABSOLUTE 0.00 K/mm3 (0.00-0.02); NRBC Auto 0.0 /100 WBC (0.0-0.2); Platelet Count 397 K/mm3 (150-400); RDW Coefficient Variation 22.1 % (11.7-14.2); RDW Standard Deviation 58.2 fL (35.1-46.3)
--- NOTE | 2024-10-13 05:29 | NUR ---
SHIFT SUMMARY; PATIENT SLEPT IN SHORT INTERVALS, PAINFUL FROM HER CHRONIC BACK PAIN AND HER HIP. ABLE TO STAND USING WALKER TO USE BR. TELE SR 82. TELE DC'D AND SHE TRIED TO SHOWER, WATER TOO COLD FOR BACK COMFORT.
[2024-10-13 05:36] LABS: Albumin, Blood 3.3 g/dL (3.4-5.0); Anion Gap 7 mmol/L (3-11); Blood Urea Nitrogen 8 mg/dL (8-24); CO2, Blood 28 mmol/L (21-32); Calcium, Blood 8.4 mg/dL (8.5-10.1); Chloride, Blood 107 mmol/L (98-108); Creatinine, Blood 0.63 mg/dL (0.40-1.00); Glucose, Blood 102 mg/dL (70-99); Magnesium, Blood 2.2 mg/dL (1.6-2.4); Phosphorus, Blood 3.2 mg/dL (2.5-4.9); Potassium, Blood 3.3 mmol/L (3.5-5.5); Sodium, Blood 139 mmol/L (136-145)
--- NOTE | 2024-10-13 06:30 | NUR ---
HEATING PAD IS HELPING HER BACK PAIN.
[2024-10-13 08:01] VITALS: BP 142/86
[2024-10-13] MEDS ORDERED: Ondansetron HCl 2 MG / ML 2ML Vial IV PRN (08:15)
--- NOTE | 2024-10-13 09:54 | NUR ---
AM NOTE: PATIENT WAKES EASILY THIS AM BY THIS RN VOICE. VITAL SIGNS STABLE. SURGICAL STATUS NO TELE. COMPLAINS OF CHRONIC BACK PAIN. SORENESS TO RIGHT HIP. UP TO BATHROOM WITH SBA AND FWW WITH POSTERIOR HIP PRECAUTION REMINDERS AND CUES. PHYSICAL THERAPY IN THIS AM. ON ROOM AIR, SATING ABOVE 95%. EVEN AND UNLABORED RESPIRATIONS. DENIES SOB/COUGH. LUNG SOUNDS CLEAR. NO TELE. DENIES CHEST PAIN/PRESSURE/PALPITATIONS. IV SALINE LOCKED. NO EDEMA NOTED. HR 80'S. BOWEL TONES PRESENT. COMPLAINS OF MILD NAUSEA THIS AM, RELIEVED WITH ZOFRAN. TOLERATING PO DIET. UP TO BATHROOM WITH ASSISTANCE. RASH TO BUE AND BLE, PATIENT STATES THIS IS CHRONIC. RIGHT HIP WITH HEALED SCAR. DR. GALLEGO TO BEDSIDE THIS AM, THIS RN PRESENT. ORDERS FOR KCL 40 MEQ PO X1 NOW. ORDERS IN PLACE. PLAN FOR ORTHO TO ROUND ON PATIENT THIS AFTERNOON. CALL LIGHT IN REACH. UP IN RECLINER AT THIS TIME. DENIES NEEDS.
[2024-10-13 11:28] VITALS: BP 129/80
--- NOTE | 2024-10-13 15:52 | NUR ---
DISCHARGE: NO ACUTE CHANGES. VITAL SIGNS REMAIN STABLE. CAREGIVER AT BEDSIDE. DISCHARGE INSTRUCTIONS REVIEWED PATIENT VERBALIZED FOLLOW UP WITH ORTHO AND POSTERIOR PRECAUTIONS. PATIENT LEFT UNIT VIA WHEELCHAIR WITH ALL PERSONAL BELONGINGS.
== END 2024-10-13 16:29 | disposition home or self-care (01) | DRG 561 ==
LOC: ER 04:39 → PCU 04:40
PROVIDERS: Emergency Medicine; Orthopaedic Surgery; ADMIT Internal Medicine
PROC: 0SW9XJZ Revision of Synthetic Substitute in Right Hip Joint, External Approach (ICD-10-PCS; 2024-10-12)
PROC: 0SW9XJZ Revision of Synthetic Substitute in Right Hip Joint, External Approach (ICD-10-PCS; principal; 2024-10-12 10:30)
PROC: 5A09357 Assistance with Respiratory Ventilation, Less than 24 Consecutive Hours, Continuous Positive Airway Pressure (ICD-10-PCS; 2024-10-13)
DX: T84.020A Dislocation of internal right hip prosthesis, initial encounter (principal); Y79.2 Prosthetic and other implants, materials and accessory orthopedic devices associated with adverse incidents; M54.50 Low back pain, unspecified; G89.29 Other chronic pain; G47.33 Obstructive sleep apnea (adult) (pediatric); J44.89 Other specified chronic obstructive pulmonary disease; M81.0 Age-related osteoporosis without current pathological fracture; E55.9 Vitamin D deficiency, unspecified; F32.A Depression, unspecified; E11.9 Type 2 diabetes mellitus without complications; E66.9 Obesity, unspecified; L40.9 Psoriasis, unspecified; K46.9 Unspecified abdominal hernia without obstruction or gangrene; Z88.1 Allergy status to other antibiotic agents; Z88.0 Allergy status to penicillin; Z88.2 Allergy status to sulfonamides; Z88.6 Allergy status to analgesic agent; Z88.8 Allergy status to other drugs, medicaments and biological substances; Z98.1 Arthrodesis status; Z79.51 Long term (current) use of inhaled steroids; Z79.82 Long term (current) use of aspirin; Z87.891 Personal history of nicotine dependence; Z68.35 Body mass index [BMI] 35.0-35.9, adult
CPT/HCPCS: 36415; 73501; 73502; 80053; 80069; 83735; 85025; 85027; 94640; 94660; 94664; 94762; 96374-59; 97116; 97161; 97530; 99152; 99153; 99285-25; A9270; G0378; J1171; J2405; J2704; J3010; J7030; J7120

== ENCOUNTER 2024-11-17 09:52 | Inpatient (IN) | payer OTHER ==
[2024-11-17] VITALS (19 sets, daily range): BP systolic 101–132; BP diastolic 64–94
[~2024-11-17] VITALS: Ht 167.6 cm; Wt 101.0 kg
[~2024-11-17 09:52] MED LIST changes: +CeFAZolin Sodium 2,000 MG in NS 100 ML IV SCH; +Chlorhexidine Mouth Care 15 ML UDC MT SCH; +Ropivacaine 0.5% HCl/Pf 123.125 MG,EPINEPHrine HCL 0.25 MG,Ketorolac Tromethamine 15 MG... INFIL SCH; +Tranexamic Acid 100 ML IV SCH
[2024-11-17] MEDS ORDERED: PRED FORTE5 M1 LEFTEYE (10:44)
[2024-11-17] MEDS ORDERED: Midazolam HCl 1MG / ML 2ML Vial ONE (11:48)
[2024-11-17] MEDS ORDERED: FentaNYL Citrate 50 MCG/ML 2 ML Injection ONE ×2 (11:48→17:54)
[2024-11-17] MEDS ORDERED: Prochlorperazine Edisylate 10 mg Vial IV PRN (12:20)
[2024-11-17] MEDS ORDERED: Formoterol/Mometasone MDI 5/200 mcg 13 GM INH SCH (12:25)
[2024-11-17] MEDS ORDERED: HYDROmorphone HCl/Pf 1MG SYR IV PRN ×3 (12:25→15:15)
[2024-11-17] MEDS ORDERED: Ondansetron HCl 2 MG / ML 2ML Vial IV PRN ×2 (12:30→15:15)
[2024-11-17] MEDS ORDERED: Magnesium Hydroxide Conc 10 ML UDC PO PRN (12:45)
[2024-11-17] MEDS ORDERED: Metoclopramide HCl 5MG / ML 2ML Vial IV PRN (12:45)
[2024-11-17] MEDS ORDERED: Rocuronium Bromide 10 MG/ML 5ML Injection IV ONE ×2 (14:04→15:40)
[2024-11-17] MEDS ORDERED: ePHEDrine Sulfate 50 MG/ML 1ML Injection ONE (14:29)
[2024-11-17] MEDS ORDERED: FentaNYL Citrate 50 MCG/ML 2 ML Injection IV PRN ×2 (15:15)
[2024-11-17] MEDS ORDERED: Dexamethasone Sod Phos 10 MG/ML 1ML VIAL ONE (15:39)
[2024-11-17] MEDS ORDERED: Ondansetron HCl 2 MG / ML 2ML Vial ONE ×2 (15:39→17:58)
[2024-11-17] MEDS ORDERED: HYDROmorphone HCl/Pf 1MG SYR ONE ×2 (15:40→17:54)
[2024-11-17] MEDS ORDERED: Sugammadex Sodium 200 MG/2ML SDV (100 MG/ML) ONE (16:44)
[2024-11-17] MEDS ORDERED: Ascorbic Acid 250 MG Chew PO SCH (17:00)
[2024-11-17] MEDS ORDERED: Calcium/Vit D 600 mg-400 Unit Tab PO SCH (17:00)
[2024-11-17] MEDS ORDERED: PrednisoLONE 1% Opth Susp 5 ML LEFTEYE SCH (21:00)
[2024-11-17] MEDS ORDERED: CeFAZolin Sodium 2,000 MG in NS 100 ML IV SCH (22:00)
[2024-11-18 00:04] VITALS: BP 107/76
[2024-11-18 03:41] VITALS: BP 111/77
[2024-11-18 05:05] LABS: BASOPHILS ABSOLUTE AUTO 0.03 K/mm3 (0.00-0.23); BASOPHILS PERCENT AUTO 0 % (0-2); EOSINOPHILS ABSOLUTE AUTO 0.01 K/mm3 (0.00-0.68); EOSINOPHILS PERCENT AUTO 0 % (0-6); Hematocrit 34.2 % (33.0-51.0); Hemoglobin 10.6 g/dL (11.5-16.0); IMMATURE GRAN ABSOLUTE AUTO 0.05 K/mm3 (0.00-0.10); IMMATURE GRAN PERCENT AUTO 0 % (0-1); LYMPHOCYTES ABSOLUTE AUTO 1.40 K/mm3 (0.84-5.20); LYMPHOCYTES PERCENT AUTO 12 % (21-46); MONOCYTES ABSOLUTE AUTO 1.00 K/mm3 (0.16-1.47); MONOCYTES PERCENT AUTO 8 % (4-13); Mean Corpuscular HGB Conc 31.0 g/dL (31.5-36.5); Mean Corpuscular Volume 79 fL (80-100); NEUTROPHILS ABSOLUTE AUTO 9.60 K/mm3 (1.96-9.15); NEUTROPHILS PERCENT AUTO 79 % (41-73); NRBC ABSOLUTE 0.00 K/mm3 (0.00-0.02); NRBC Auto 0.0 /100 WBC (0.0-0.2); Platelet Count 306 K/mm3 (150-400); RDW Coefficient Variation 21.9 % (11.7-14.2); RDW Standard Deviation 62.4 fL (35.1-46.3)
[2024-11-18 05:27] LABS: Anion Gap 9.0 mmol/L (3-11); Blood Urea Nitrogen 16.0 mg/dL (8-24); CO2, Blood 25.0 mmol/L (21-32); Calcium, Blood 7.8 mg/dL (8.5-10.1); Chloride, Blood 110.0 mmol/L (98-108); Creatinine, Blood 0.69 mg/dL (0.40-1.00); Glucose, Blood 139.0 mg/dL (70-99); Potassium, Blood 3.9 mmol/L (3.5-5.5); Sodium, Blood 140.0 mmol/L (136-145)
[2024-11-18 07:23] VITALS: BP 120/67
[2024-11-18] MEDS ORDERED: PHENTERMINE 37.5 MG PO SCH (09:00)
[2024-11-18 14:34] VITALS: BP 108/75
== END 2024-11-18 15:01 | disposition home or self-care (01) | DRG 467 ==
LOC: MEDS 09:52 → SURS 09:52
PROVIDERS: ADMIT Orthopaedic Surgery
PROC: 0SP90JZ Removal of Synthetic Substitute from Right Hip Joint, Open Approach (ICD-10-PCS; 2024-11-17)
PROC: 0SR903Z Replacement of Right Hip Joint with Ceramic Synthetic Substitute, Open Approach (ICD-10-PCS; principal; 2024-11-17 14:00)
DX: T84.020A Dislocation of internal right hip prosthesis, initial encounter (principal); S72.001K Fracture of unspecified part of neck of right femur, subsequent encounter for closed fracture with nonunion; J45.909 Unspecified asthma, uncomplicated; E11.9 Type 2 diabetes mellitus without complications; M81.0 Age-related osteoporosis without current pathological fracture; M54.50 Low back pain, unspecified; G89.29 Other chronic pain; G47.33 Obstructive sleep apnea (adult) (pediatric); F32.A Depression, unspecified; I10 Essential (primary) hypertension; D72.829 Elevated white blood cell count, unspecified; Z96.641 Presence of right artificial hip joint; Z98.1 Arthrodesis status; Z98.890 Other specified postprocedural states; Z87.891 Personal history of nicotine dependence; Z79.51 Long term (current) use of inhaled steroids; Z79.891 Long term (current) use of opiate analgesic; Z79.899 Other long term (current) drug therapy; Z88.1 Allergy status to other antibiotic agents; Z88.2 Allergy status to sulfonamides; Z88.6 Allergy status to analgesic agent; Z88.8 Allergy status to other drugs, medicaments and biological substances; Y79.2 Prosthetic and other implants, materials and accessory orthopedic devices associated with adverse incidents
CPT/HCPCS: 36415; 72170; 80048; 85025; 94640; 94664; 94760; 97110; 97116; 97162; 97165; 97535; A9270; C1776; J0690; J0735; J1100; J1171; J1885; J2250; J2405; J2704; J2795; J3010; J7120

== ENCOUNTER → 2025-03-03 | Outpatient (CLI) | payer OTHER ==
[~2025-03-03] MED LIST changes: -CeFAZolin Sodium 2,000 MG in NS 100 ML IV SCH; -Chlorhexidine Mouth Care 15 ML UDC MT SCH; +PRED FORTE5 M1 LEFTEYE; -Ropivacaine 0.5% HCl/Pf 123.125 MG,EPINEPHrine HCL 0.25 MG,Ketorolac Tromethamine 15 MG... INFIL SCH; -Tranexamic Acid 100 ML IV SCH
== END ==
LOC: LAB SHORT 11:03 → LAB 11:03
DX: C44.629 Squamous cell carcinoma of skin of left upper limb, including shoulder (principal)
CPT/HCPCS: 88305

== ENCOUNTER 2025-03-24 07:03 | Emergency (ER) | payer OTHER ==
[~2025-03-24] VITALS: Ht 167.6 cm; Wt 100.7 kg
[2025-03-24] MEDS ORDERED: Lidocaine 4% 1 Patch TOP ONE (07:20)
[2025-03-24] MEDS ORDERED: LIDO700A20 TOP (09:29)
[2025-03-24] MEDS ORDERED: CYCL10 PO (09:29)
[2025-03-24] MEDS ORDERED: OXAYDO5 M1 PO (09:29)
[2025-03-24 09:40] VITALS: BP 129/87
== END 2025-03-24 09:45 | disposition home or self-care (01) ==
LOC: ER 07:03
DX: R07.89 Other chest pain (principal); J45.909 Unspecified asthma, uncomplicated; E11.9 Type 2 diabetes mellitus without complications; M81.0 Age-related osteoporosis without current pathological fracture; Z96.641 Presence of right artificial hip joint; Z87.891 Personal history of nicotine dependence; Z91.81 History of falling; Z88.0 Allergy status to penicillin; Z88.2 Allergy status to sulfonamides; Z88.1 Allergy status to other antibiotic agents; Z88.6 Allergy status to analgesic agent; Z88.8 Allergy status to other drugs, medicaments and biological substances; Z79.51 Long term (current) use of inhaled steroids; Z79.899 Other long term (current) drug therapy
CPT/HCPCS: 71110; 93005; 93010; 99283-25; A9270

== ENCOUNTER → 2025-04-12 | Outpatient (CLI) | payer OTHER ==
[~2025-04-12] MED LIST changes: +CYCL10 PO; +LIDO700A20 TOP
== END ==
LOC: LAB 08:42 → LAB SHORT 08:42
DX: C44.92 Squamous cell carcinoma of skin, unspecified (principal)
CPT/HCPCS: 88305